=== PATIENT | male | born 1990 | race Caucasian/White ===

== ENCOUNTER 2024-11-12 10:15 | Outpatient (CLI) | payer OTHER, SELFPAY | END 2024-11-13 09:36 | disposition home or self-care (01) | PROVIDERS: PCP Family Medicine; Visit Provider Family Medicine | DX: R06.81 Apnea, not elsewhere classified (principal) | CPT/HCPCS: 95800 ==

== ENCOUNTER 2024-11-21 01:57 | Day surgery (SDC) | payer OTHER, SELFPAY ==
[2024-09-03 11:15] VITALS: BMI 32.7
[2024-11-07 14:50] VITALS: BMI 32.7
--- NOTE | 2024-11-21 07:16 | WPDANESEPPF ---
Anes - Initial Pre Proc Eval Procedure: Operation Date: 11/21/24 08:30 Proposed Procedures p Esophagogastroduodenoscopy - Nilay Andrew MD Date/Time: 11/21/24 07:16 Surgeon: Nilay Andrew MD Pre Op Diagnosis: dysphagia Patient Data Age: 34 Gender: M Height: 1.73 m Weight: 97.6 kg Allergies Allergy/AdvReac Type Severity Reaction Status Date / Time No Known Allergies Allergy Verified 11/21/24 07:15 Home Medications ?Medication ?Instructions ?Recorded ?Confirmed ?Type Ollybrand Multi Vitamin 1 tab-cap BYMOUTH DAILY 08/15/24 11/21/24 History aleve 440 tab-cap BYMOUTH PRN PRN Pain 08/15/24 09/03/24 History fiber 5 g BYMOUTH DAILY 08/15/24 11/21/24 History esomeprazole magnesium 40 mg 40 mg PO DAILY #90 caps 11/06/24 11/21/24 Rx capsule,delayed release (Nexium) Patient hx anesthesia problems: none Family hx anesthesia problems: none Results Review: All pre-operative results and documents have been reviewed as part of the pre-operative evaluation. [facility] Past Medical History Medical History (Updated 08/15/24 @ 11:49 by Jesus Richardson MD) GERD (gastroesophageal reflux disease) Family History Family History (Updated 08/15/24 @ 11:39 by Minerva Hart MA) Mother Diabetes mellitus Depression Anxiety Alcohol abuse Father Alcohol abuse Sibling Depression Anxiety Grandparent Cancer Grandparent Alcohol abuse Cancer Diabetes mellitus Other Breast cancer Lung cancer Skin cancer Social History Social History Smoking packs per day: 1 Smoking cigarettes per day: 20.0 Years smoked: 1 Smoking pack-years: 1.00 Smoking status: Former smoker Tobacco type: cigarettes Alcohol intake: current Drinks per week: 2 Spiritual care concerns: No Anes - Eval Final PreProcedure Day of Procedure 11/21/24 07:16 Patient weight: obese Heart: regular rate and rhythm Lungs: clear to auscultation Airway: Mallampati scale class II Neurological: alert and oriented Last oral intake: >/= 8 hours ASA classification: II Emergent: no Anesthetic plan: proceed Anesthesia type and monitoring: general GIVS and standard monitoring Results Review: All pre-operative results and documents have been reviewed as part of the pre-operative evaluation. Informed Consent: The patient's anesthetic plan and its attendant risks and benefits were discussed with the patient/family/POA. Questions were solicited and answers provided to the satisfaction of the patient/family/POA.
[2024-11-21 07:18] VITALS: BP 132/90; PULSE 88; RESP 16; TEMP 36.9; O2SAT 98
[2024-11-21] MEDS: LACTATED RINGERS 1,000 ML 150 ML IV CONT (07:26)
--- NOTE | 2024-11-21 07:56 | P.HP_ITS ---
H&P: HPI History of Present Illness Date/Time: 11/21/24 07:56 Chief Complaint: dysphagia Narrative: the patient has experiencing intermittent dysphagia for over year. He has concomitant heartburn which has been successfully treated with esomeprazole, initially 40 mg b.i.d., and recently decreased dose to 40 mg q.a.m. with reflux control. However dysphagia episodes occur exclusively with solids and very spo radic. He does report sometimes nausea and vomiting episodes. He is here for EGD. Review of Systems Review of Systems: All systems reviewed & are unremarkable except as noted in HPI and below PMFSH Past Medical History Medical History (Updated 11/21/24 @ 07:57 by Nilay Andrew MD) GERD (gastroesophageal reflux disease) Family History Family History (Updated 08/15/24 @ 11:39 by Minerva Hart MA) Mother Diabetes mellitus Depression Anxiety Alcohol abuse Father Alcohol abuse Sibling Depression Anxiety Grandparent Cancer Grandparent Alcohol abuse Cancer Diabetes mellitus Other Breast cancer Lung cancer Skin cancer Social History Social History Smoking packs per day: 1 Smoking cigarettes per day: 20.0 Years smoked: 1 Smoking pack-years: 1.00 Smoking status: Former smoker Tobacco type: cigarettes Alcohol intake: current Drinks per week: 2 Spiritual care concerns: No Meds Home Medications and Allergies Home Medications ?Medication ?Instructions ?Recorded ?Confirmed ?Type Ollybrand Multi Vitamin 1 tab-cap BYMOUTH DAILY 08/15/24 11/21/24 History aleve 440 tab-cap BYMOUTH PRN PRN Pain 08/15/24 09/03/24 History fiber 5 g BYMOUTH DAILY 08/15/24 11/21/24 History esomeprazole magnesium 40 mg 40 mg PO DAILY #90 caps 11/06/24 11/21/24 Rx capsule,delayed release (Nexium) Allergies Allergy/AdvReac Type Severity Reaction Status Date / Time No Known Allergies Allergy Verified 11/21/24 07:15 Vital Signs Vital Signs - 24 hr 11/21/24 07:18 Temperature 98.5 F Pulse Rate 88 Respiratory Rate 16 Blood Pressure 132/90 Pulse Oximetry 98 Oxygen Delivery Room Air Exam Const: General: cooperative and healthy appearing Resp: Effort & Inspection: normal respiratory effort and able to speak in complete sentences Auscultation: clear to auscultation bilaterally Cardio: Rate: regular rate Rhythm: regular rhythm GI: Inspection: normal to inspection GI Palp: No No hepatosplenomegaly present Auscultation: normal bowel sounds Rectal Exam: deferred Skin: General skin exam: normal color Psych: Appearance: grossly normal Mental Status: mental status grossly normal Assessment and Plan Assessment and plan (1) Dysphagia: Code(s): R13.10 - Dysphagia, unspecified Status: Acute Assessment and Plan: The patient is deemed a good candidate for the procedure. Consent signed. Will proceed. will take esophageal biopsies to rule out eosinophilic esophagitis Plan
[2024-11-21] MEDS: BENZOCAINE (*SP) 60 ML SPRAY CAN (HURRICAINE) 1 SPRAY MUCOUS MEM (08:04)
[2024-11-21] MEDS: SIMETHICONE ORAL SUSPENSION 20 MG/0.3 ML 30 ML BOTTLE 0.6 ML IRRIGATION (08:07)
[2024-11-21 08:24] VITALS: BP 127/76; PULSE 90; RESP 23; O2SAT 96
[2024-11-21 08:34] VITALS: BP 123/85; PULSE 80; RESP 20; O2SAT 98
[2024-11-21 08:44] VITALS: BP 130/94; PULSE 78; RESP 20; O2SAT 98
== END 2024-11-21 08:54 | disposition home or self-care (01) ==
PROVIDERS: PCP Family Medicine; Visit Provider Internal Medicine Gastroenterology
PROC: 0DJ08ZZ Inspection of Upper Intestinal Tract, Via Natural or Artificial Opening Endoscopic (ICD-10-PCS; CPT 43239; principal; 2024-11-21 08:30)
DX: R13.10 Dysphagia, unspecified (principal); K31.7 Polyp of stomach and duodenum; K21.9 Gastro-esophageal reflux disease without esophagitis; Z87.891 Personal history of nicotine dependence
CPT/HCPCS: 43239; 43251; 88305; J2003; J2704; J7120

== ENCOUNTER 2025-08-05 15:50 | Emergency (ER) | payer OTHER, SELFPAY ==
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
[2025-08-05 16:00] VITALS: BP 138/88; PULSE 78; RESP 20; TEMP 37; O2SAT 99
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
== END 2025-08-05 17:30 | disposition home or self-care (01) ==
PROVIDERS: PCP Family Medicine
DX: S39.012A Strain of muscle, fascia and tendon of lower back, initial encounter (principal); V43.52XA Car driver injured in collision with other type car in traffic accident, initial encounter; Z87.891 Personal history of nicotine dependence
CPT/HCPCS: 72110; 99213; G0463